=== PATIENT | male | born 1965 | race Caucasian/White ===

== ENCOUNTER → 2017-07-17 17:04 | Outpatient (CLI) | payer OTHER, SELFPAY ==
[2017-07-17 17:47] LABS: Absolute Lymphocyte Count 3.05 X10^3/ul (0.83-4.51); Basophil# 0.02 X10^3/uL; Basophil% 0.3 % (0-1); Eosinophils% 1.3 % (0-5); Hematocrit 46.6 % (40-54); Hemoglobin 15.4 g/dl (13.0-16.5); Lymphocyte # 3.05 X10^3/ul (4.0); Lymphocyte % 39.5 % (19-41); Mean Corpuscular Hgb 30.1 pg (27.0-32.0); Mean Platelet Vol. 9.4 fl (6.2-12.0); Monocyte# 0.56 X10^3/uL; Monocyte% 7.2 % (0-10); Neutrophil # 3.99 X10^3/uL (2.7-7.7); Neutrophil % 51.6 % (47-70); Platelet Count 202 K/mm3 (150-450); RBC Distribution Width CV 13.3 % (11.6-14.6); RBC Distribution Width SD 43.6 fl (35.1-43.9); Red Blood Count 5.12 M/mm3 (4.6-6.2); White Blood Count 7.7 K/mm3 (4.4-11.0)
[2017-07-17 17:55] LABS: POSITIVE COUNT NO; POSITIVE DIFFERENTIAL NO; POSITIVE MORPHOLOGY NO
[2017-07-17 18:27] LABS: ALB/GLOB Ratio 1.1 RATIO (0.9-2.4); AST(SGOT) 19 U/L (15-37); Alanine Aminotransfer ALT/SGPT 43 U/L (16-61); Albumin, Serum 3.9 g/dL (3.2-5.0); Alkaline Phosphatase 50 U/L (45-117); Anion Gap 8 (5-15); BUN 18 mg/dL (7-18); BUN/Creat Ratio 16.4 RATIO (10-20); Calcium,Total 8.7 mg/dL (8.5-10.1); Chloride 109 mmol/L (98-107); EST Glomerular Filtration Rate 75 mL/min (>60); Est Glom Filt Rate - Afr Amer 91 mL/min (>60); Globulin 3.4 g/dL (2.2-4.2); Glucose 95 mg/dL (74-106); Potassium 3.8 mmol/L (3.5-5.1); Protein, Total 7.3 g/dL (6.4-8.2); Sodium Level 142 mmol/L (136-145)
== END ==
PROVIDERS: Family Provider Family Medicine; PCP Family Medicine; Visit Provider Family Medicine
DX: R00.2 Palpitations (principal)
CPT/HCPCS: 36415; 80053; 84443; 85025

== ENCOUNTER → 2017-08-03 07:33 | Outpatient (CLI) | payer OTHER, SELFPAY ==
[2017-08-03 08:57] LABS: AST(SGOT) 22 U/L (15-37); Alanine Aminotransfer ALT/SGPT 44 U/L (16-61); Albumin, Serum 3.9 g/dL (3.2-5.0); Alkaline Phosphatase 48 U/L (45-117); Bilirubin, Direct 0.06 mg/dL (0.00-0.30); Cholesterol 166 mg/dL (200); Globulin 3.4 g/dL (2.2-4.2); High Density Lipoprotein 25 mg/dL; Protein, Total 7.3 g/dL (6.4-8.2); Thyroid Stim Hormone (TSH) 2.88 uIU/mL (0.358-3.74); Triglycerides 310 mg/dL; Very Low Density Lipoprotein 62 mg/dL (5-40)
== END ==
PROVIDERS: Family Provider Family Medicine; PCP Family Medicine; Visit Provider Internal Medicine Cardiovascular Disease
DX: I49.3 Ventricular premature depolarization (principal); I10 Essential (primary) hypertension; E66.9 Obesity, unspecified; R00.2 Palpitations; E78.5 Hyperlipidemia, unspecified
CPT/HCPCS: 36415; 80061; 80076; 84443

== ENCOUNTER → 2017-08-21 13:55 | Outpatient (CLI) | payer OTHER, SELFPAY ==
--- NOTE | 2017-08-21 13:57 | ECHOD_ITS ---
Reason For Study: CHEST PAIN Procedure This was a 2D Doppler, Color Flow transthoracic echocardiogram. Exam performed in department. Left Ventricle Normal size and thickness. The estimated ejection fraction is 65 %. Normal diastology for age. No regional wall motion abnormalities noted. Right Ventricle Normal size and thickness. Normal systolic function. Atria Normal left atrium. Normal right atrium. Normal atrial septum. Mitral Valve The mitral valve is structurally normal. No prolapse or stenosis seen. Tricuspid Valve Normal tricuspid valve. Unable to estimate RV systolic pressure due to inadequate jet, pulmonary artery pressure probably normal. Aortic Valve Normal aortic valve. Trisinus/trileaflet aortic valve. Pulmonic Valve Normal pulmonic valve. Trivial pulmonic valve insufficiency. Great Vessels Normal aortic root. Normal arch. Normal inferior vena cava. Inferior vena cava collapse with sniff. Pericardium/Pleural No pericardial effusion. MMode/2D Measurements & Calculations LVIDd: 4.8 cm IVSd: 0.94 cm Ao root diam: 3.2 cm LVIDs: 3.2 cm LVPWd: 1.0 cm RVDd: 3.3 cm FS: 32.0 % LAV(MOD-bp): 42.5 ml LA A4 area: 15.1 cm2 RA A4 area: 13.7 cm2 LAV(MOD-bp) Indexed: 19.1 ml/m2 LAV(MOD-sp2): 52.1 ml LAV(MOD-sp4): 33.4 ml Doppler Measurements & Calculations MV E max chris: 53.1 cm/sec Lat Peak E' Chris: 8.3 cm/sec Med Peak E' Chris: 7.7 cm/sec MV A max chris: 63.1 cm/sec E/E' lat: 6.4 E/E' med: 6.9 MV E/A: 0.84 Ao V2 max: 131.8 cm/sec LV V1 max: 103.0 cm/sec PA V2 max: 114.4 cm/sec Ao max P.9 mmHg LV V1 max P.2 mmHg PI end-d chris: 105.2 cm/sec Interpretation Summary The estimated ejection fraction is 65 %. Normal diastology for age. Unable to estimate RV systolic pressure due to inadequate jet, pulmonary artery pressure probably normal. There is no comparison study available. Ordering Physician: Nathanael Loomis Referring Physician: CHRISTIANO REED Performed By: Lucy Fuller RDCS, RVT
== END ==
PROVIDERS: Family Provider Family Medicine; PCP Family Medicine; Visit Provider Internal Medicine Cardiovascular Disease
DX: I10 Essential (primary) hypertension (principal); I49.3 Ventricular premature depolarization; R00.2 Palpitations; R06.83 Snoring
CPT/HCPCS: 93306

== ENCOUNTER → 2017-08-30 13:35 | Outpatient (CLI) | payer OTHER, SELFPAY ==
--- NOTE | 2017-08-30 13:37 | STE_ITS ---
Reason For Study: CHEST PAIN Stress Results Protocol: Reji Protocol Maximum Predicted HR: 170 bpm Target HR: 145 bpm% Max imum Predicted HR: 105 % DurationHeart Rate Stage (mm:ss) (bpm) BP BASELINE 97 152/10 8 STAGE 1 3:00 12 5 184/110 STAGE 2 3:00 15 5 184/110 STAGE 3 3:00 17 9 220/112 RECOVERY 111 152/1 08 Stress Duration: 9:00 mm:ss Maximum Stress HR: 179 bpm Baseline Echocardiogram Findings The estimated ejection fraction is 65 %. Stress Echo Wall motion Data Resting WMIntermediate WMStress WM Resting Wall Motion Wall Motion Stress No regional wall motion No regional wall motion abnormalities noted. abnormalities noted. EKG Data The baseline ECG demonstrates normal sinus rhythm with at rate of _ beats per minute. The patient exercised according to the regular Reji protocol for a total duration of 9:00. The maximum heart rate attained was 179 beats per minute. This was 105% of maximum predicted heart rate. The patient exercised into stage 4 of the Reji protocol. During stress, there were no ST or T wave changes noted to suggest ischemia. No clinical angina was noted. Interpretation Summary The estimated ejection fraction is 65 %. Normal, adequate, treadmill echocardiogram. Negative for ischemia by EKG and echocardiographic criteria. No anginal symptoms noted. Rare PVCs noted. Baseline hypertension and hypertensive blood pressure response to exercise. Final LVEF is 75%. Average exercise capacity for age. No complications. Ordering Physician: Nathanael Loomis Referring Physician: Nathanael Loomis Performed By: Lucy Fuller, UMM, RVT
== END ==
PROVIDERS: Family Provider Family Medicine; PCP Family Medicine; Visit Provider Internal Medicine Cardiovascular Disease
DX: I49.3 Ventricular premature depolarization (principal); I10 Essential (primary) hypertension; R00.2 Palpitations; R07.9 Chest pain, unspecified
CPT/HCPCS: 93017; 93350

== ENCOUNTER → 2018-02-08 07:44 | Outpatient (CLI) | payer OTHER, SELFPAY ==
[2018-02-08 09:33] LABS: AST(SGOT) 23 U/L (15-37); Alanine Aminotransfer ALT/SGPT 40 U/L (16-61); Albumin, Serum 3.8 g/dL (3.2-5.0); Alkaline Phosphatase 47 U/L (45-117); Bilirubin, Direct 0.08 mg/dL (0.00-0.30); Cholesterol 186 mg/dL (200); Globulin 3.5 g/dL (2.2-4.2); High Density Lipoprotein 24 mg/dL; Protein, Total 7.3 g/dL (6.4-8.2); Triglycerides 242 mg/dL; Very Low Density Lipoprotein 48 mg/dL (5-40)
== END ==
PROVIDERS: Family Provider Family Medicine; PCP Family Medicine; Referring Provider Internal Medicine Cardiovascular Disease; Visit Provider Internal Medicine Cardiovascular Disease
DX: E78.5 Hyperlipidemia, unspecified (principal)
CPT/HCPCS: 36415; 80061; 80076

== ENCOUNTER → 2018-05-05 16:18 | Outpatient (CLI) | payer OTHER, SELFPAY ==
[2018-02-07 14:26] VITALS: BMI 31.0
--- NOTE | 2018-05-05 16:23 | RAD_ITS ---
STUDY: X-RAY - LUMBAR SPINE REASON FOR EXAM: Male, 52 years old. Low back pain TECHNIQUE: 5 view(s) of the lumbar spine were obtained. COMPARISON: None FINDINGS: Normal lumbar lordosis. There is no substantial scoliosis. There is a normal alignment of the vertebrae. Normal vertebral bodies and endplates. Normal disc space heights. The soft tissue structures are unremarkable. RAD/L/S Spine Min 4 Views IMPRESSION: Normal x-ray examination of the lumbar spine. Electronically Signed: Charlie Bernardo MD at 17:47 EST , Service support ,
== END ==
PROVIDERS: Family Provider Family Medicine; PCP Family Medicine; Referring Provider Family Medicine; Visit Provider Family Medicine
DX: M54.5 Low back pain (principal)
CPT/HCPCS: 72110

== ENCOUNTER 2018-07-14 18:30 | Outpatient (RCR) | payer OTHER, SELFPAY ==
--- NOTE | 2018-06-12 16:18 | HP.PTEVAL ---
Patient's Visit Information RONALD TAYLOR is a 52 year old M referred to Physical Therapy by Don Mccauley MD with a diagnosis of ACUTE RADICULAR LOW BACK PAIN. Date of Evaluation: 06/12/18 Physical Therapist: Aris Gonzalez PT, Cert MDT, OCS - Visit Plan Frequency: 2x /Week Duration: 4 Weeks Plan: ADRIANA EX'S WITH HIPS TO LEFT PROGRESS TO SAGGITAL,STRETCHING FOR RIGHT ANR. PROGRESS TO STABLIZATION EX'S FOR CORE,POSTURAL EX'S AND MODALTIES NEEDED - Subjective Findings: This 52 y/o male presents to physical therapy acute low back pain. Patient 1 month ago shoveling snow slipped notice sonme soreness. Then shoveled moms driveway,then next day pulled up heavy garage door felt sharp pain with radiculoathy right leg posterior leg. Patient seen DR limon,predisone ,gabepetin,tramadol,naproxyn. Patient had x-rays. Patient has had MRI L4-5 HNP. Patient has had lumbar pain since 37 y/o. Patient pain right lumbar ocassioanlly radicular. Coughing/sneezin+. Roberto/bladder good. Denies parathesia/tingling. Patient has had prior chiropractor. Patient lumbar pain affets QOL and function. SOCAIL: . VOCATION: sales - Pain Right Back Pain Intensity (Out of 10): 2 Pain Intensity Range: 10 - Objective POSTURE: mild foward posture ,slight lateral shift left. GAIT: normal michelle. SYMMTRIES: ALIGN. NEURO: intact. FLEXABLITY: hams mod tight from ANR on right. MMT: quads 4-/5,hams 4/5,hip 4/5,ankle 4/5. LUMBAR ROM: flexion min/mod loss.extension min loss,side glides min loss - Special Tests L/S Slump test left side: Negative L/S Slump test right side: Positive L/S Left Straight Leg Raise: Negative L/S Right Straight Leg Raise: Positive Lumbar Standing: Flexion - Mechanical Response: No effect Lumbar Standing: Flexion - Symptoms During Testing: Increases Lumbar Standing: Flexion - Symptoms After Testing: Worse Lumbar Standing: Extension - Mechanical Response: No effect Lumbar Standing: Extension - Symptoms During Testing: Increases Lumbar Standing: Extension - Symptoms After Testing: No worse Lumbar Standing: Right Side Glides - Mechanical Response: No effect Lumbar Standing: Right Side [place] - Symptoms During Testing: Decreases Lumbar Standing: Right Side [place] - Symptoms After Testing: Better Lumbar Standing: Left Side [place] - Mechanical Response: No effect Lumbar Standing: Left Side [place] - Symptoms During Testing: No effect Lumbar Standing: Left Side [place] - Symptoms After Testing: No effect Lumbar Lying: Flexion - Mechanical Response: No effect Lumbar Lying: Flexion - Symptoms During Testing: Increases Lumbar Lying: Flexion - Symptoms After Testing: No worse Lumbar Lying: Extension - Mechanical Response: No effect Lumbar Lying: Extension - Symptoms During Testing: Increases Lumbar Lying: Extension - Symptoms After Testing: No worse Comments:: shift left hips reduces symptoms - Goals Goal 1:: Independant with HEP Goal Time Frame: 4-6 Weeks Goal 2:: Independant with posture/body mecahnics. Goal Time Frame: 4-6 Weeks Goal 3:: Patient d/c to prophalxis to dimish recurrance Goal Time Frame: 4-6 Weeks Goal 4:: Patient to improve lumbar ROM for function of recovery Goal Time Frame: 4-6 Weeks Goal 5:: Patient improve TRISTAN back score by 5 points Goal Time Frame: 4-6 Weeks - Rehabilitation Potential Physical Therapy Diagnosis: This patient has derrangement below knee with h/o HNP .Patient intially had left shift deformity ,pain right leg ,decrease ROM + ANR right leg along with weakness impairs gait ansd function. Rehabilitation Potential: Good - Anticipated Interventions Patient/Client Instruction: Educate patient on: Condition, Plan of Care For the Purpose of:: To decrease pain, To increase ROM, To improve muscle performance and motor function, To increase tolerance to activity/condition/position, To improve ability of physical actions for home/community/work/leisure, To improve gait and locomotor functions, To improve health of tissue, To decrease soft tissue restriction, To increase flexibility/ROM, To reduce risk of recurrence, To improve ability to perform tasks related to life management Therapeutic Exercise to Include: Strength training, Body mechanics, Postural training, Flexibilty training, Dynamic Lumbar Stabilization, Adriana Exercises For the Purpose of:: To decrease pain, To increase ROM, To improve muscle performance and motor function, To improve ability to perform ADL's, To improve performance and independence with ADL's, To improve ability of physical actions for home/community/work/leisure, To improve health of tissue, To decrease soft tissue restriction, To increase flexibility/ROM, To improve ability to perform tasks related to life management TENS: Yes IF ES: Yes Cryotherapy (ice pack, ice massage): Yes Ultrasound (thermal/non thermal): Yes For the Purpose of:: To decrease pain, To increase ROM, To improve nutrient delivery to tissue, To increase oxygenation perfusion, To improve health of tissue, To decrease soft tissue restriction Thank you for the opportunity to evaluate your patient. For Medicare and Medicare HMO plans, please review the plan of care and approve it. It will need to be FAXED BACK to us at [phone] for Medicare purposes. For Medicare only, by signing this I certify the plan of care. Please let me know if there are questions or concerns regarding this plan of care. Physician Signature: Date:
--- NOTE | 2018-07-14 18:58 | HP.PTDCSUM ---
HP - PT D/C Summary It has been my pleasure to treat RONALD TAYLOR under orders from Don Mccauley MD, for the diagnosis of ACUTE RADICULAR LOW BACK PAIN for a total of 9 visit(s). Discharge Date: 07/14/18 Please see the following information for a summary of their discharge status. - Subjective Subjective: Doing well.. no pain lumbar - Pain Right Back Pain Intensity (Out of 10): 0 midline Pain Intensity (Out of 10): 0 - Overall Improvement % Improvement: 80 - Objective Objective/Function: POSTURE: WFL. NEURO: INTACT. GAIT: normal michelle. MMT: quads/hams /hip 5/5. LUMBAR ROM: flexion/extension WNL ,SIDE SLIDE WFL. -SLR - Goals Goal 1:: Independant with HEP Goal Progress: Goal Met Goal 2:: Independant with posture/body mecahnics. Goal Progress: Goal Met Goal 3:: Patient d/c to prophalxis to dimish recurrance Goal Progress: Goal Met Goal 4:: Patient to improve lumbar ROM for function of recovery Goal Progress: Goal Met Goal 5:: Patient improve TRISTAN back score by 5 points Goal Progress: Goal Met - Plan Plan: D/C TO HEP - D/C Information Discharge Comments: HEP If there are questions or concerns regarding this patient's physical therapy, please feel free to call me at [phone]. Thank you for the referral of this patient. Sincerely, Aris Gonzalez, PT, Cert MDT, OCS
== END 2018-07-14 19:00 | disposition home or self-care (01) ==
LOC: PT 18:30
PROVIDERS: Family Provider Family Medicine; PCP Family Medicine; Referring Provider Family Medicine; Visit Provider Family Medicine
DX: M54.16 Radiculopathy, lumbar region (principal)
CPT/HCPCS: 97014; 97110; 97161; 97530; G0283

== ENCOUNTER → 2018-08-23 07:19 | Outpatient (CLI) | payer OTHER, SELFPAY ==
[2018-08-21 14:23] VITALS: BMI 31.0
[2018-08-23 08:32] LABS: AST(SGOT) 26 U/L (15-37); Alanine Aminotransfer ALT/SGPT 38 U/L (16-61); Albumin, Serum 3.9 g/dL (3.2-5.0); Alkaline Phosphatase 44 U/L (45-117); Bilirubin, Direct 0.09 mg/dL (0.00-0.30); Cholesterol 205 mg/dL (200); Globulin 3.4 g/dL (2.2-4.2); High Density Lipoprotein 28 mg/dL; Protein, Total 7.3 g/dL (6.4-8.2); Triglycerides 257 mg/dL; Very Low Density Lipoprotein 51 mg/dL (5-40)
== END ==
PROVIDERS: Family Provider Family Medicine; PCP Family Medicine; Referring Provider Internal Medicine Cardiovascular Disease; Visit Provider Internal Medicine Cardiovascular Disease
DX: E78.5 Hyperlipidemia, unspecified (principal)
CPT/HCPCS: 36415; 80061; 80076

== ENCOUNTER → 2019-03-13 06:30 | Outpatient (CLI) | payer OTHER, SELFPAY ==
[2019-03-05 14:56] VITALS: BMI 32.4
[2019-03-13 08:13] LABS: AST(SGOT) 24 U/L (15-37); Alanine Aminotransfer ALT/SGPT 49 U/L (16-61); Albumin, Serum 3.9 g/dL (3.2-5.0); Alkaline Phosphatase 47 U/L (45-117); Bilirubin, Direct 0.08 mg/dL (0.00-0.30); Cholesterol 229 mg/dL (200); Globulin 3.7 g/dL (2.2-4.2); High Density Lipoprotein 28 mg/dL; Protein, Total 7.6 g/dL (6.4-8.2); Triglycerides 209 mg/dL; Very Low Density Lipoprotein 42 mg/dL (5-40)
== END ==
PROVIDERS: Family Provider Family Medicine; PCP Family Medicine; Referring Provider Internal Medicine Cardiovascular Disease; Visit Provider Internal Medicine Cardiovascular Disease
DX: E78.5 Hyperlipidemia, unspecified (principal)
CPT/HCPCS: 36415; 80061; 80076

== ENCOUNTER → 2019-08-07 07:19 | Outpatient (CLI) | payer OTHER, SELFPAY ==
[2019-08-06 09:59] VITALS: BMI 32.5
[2019-08-07 08:42] LABS: AST(SGOT) 27 U/L (15-37); Alanine Aminotransfer ALT/SGPT 61 U/L (16-61); Albumin, Serum 3.9 g/dL (3.2-5.0); Alkaline Phosphatase 47 U/L (45-117); Bilirubin, Direct 0.13 mg/dL (0.00-0.30); Cholesterol 190 mg/dL (200); Globulin 3.7 g/dL (2.2-4.2); High Density Lipoprotein 30 mg/dL; Protein, Total 7.6 g/dL (6.4-8.2); Triglycerides 180 mg/dL; Very Low Density Lipoprotein 36 mg/dL (5-40)
== END ==
PROVIDERS: PCP Family Medicine; Referring Provider Internal Medicine Cardiovascular Disease; Visit Provider Internal Medicine Cardiovascular Disease
DX: E78.5 Hyperlipidemia, unspecified (principal)
CPT/HCPCS: 36415; 80061; 80076

== ENCOUNTER → 2020-09-17 07:25 | Outpatient (CLI) | payer OTHER, SELFPAY ==
[2020-03-30 10:27] VITALS: BMI 33.2
[2020-09-17 08:24] LABS: AST(SGOT) 22 U/L (15-37); Alanine Aminotransfer ALT/SGPT 47 U/L (16-61); Alkaline Phosphatase 51 U/L (45-117); Bilirubin, Direct 0.12 mg/dL (0.00-0.30); Cholesterol 196 mg/dL (200); Globulin 3.7 g/dL (2.2-4.2); High Density Lipoprotein 34 mg/dL; Protein, Total 7.7 g/dL (6.4-8.2); Triglycerides 201 mg/dL; Very Low Density Lipoprotein 40 mg/dL (5-40)
== END ==
PROVIDERS: PCP Family Medicine; Referring Provider Nurse Practitioner Family; Visit Provider Nurse Practitioner Family
DX: E78.00 Pure hypercholesterolemia, unspecified (principal); E78.5 Hyperlipidemia, unspecified
CPT/HCPCS: 36415; 80061; 80076

== ENCOUNTER → 2021-08-29 | Outpatient (CLI) | payer OTHER, SELFPAY ==
[2021-08-29 17:36] LABS: AST(SGOT) 21 U/L (15-37); Alanine Aminotransfer ALT/SGPT 42 U/L (16-61); Alkaline Phosphatase 51 U/L (45-117); Bilirubin, Direct 0.09 mg/dL (0.00-0.30); Cholesterol 234 mg/dL (200); Globulin 3.5 g/dL (2.2-4.2); High Density Lipoprotein 30 mg/dL; Protein, Total 7.5 g/dL (6.4-8.2); Triglycerides 283 mg/dL; Very Low Density Lipoprotein 57 mg/dL (5-40)
== END | disposition home or self-care (01) ==
LOC: LAB 16:45
PROVIDERS: PCP Family Medicine; Referring Provider Physician Assistant Medical; Visit Provider Physician Assistant Medical
DX: E78.00 Pure hypercholesterolemia, unspecified (principal)
CPT/HCPCS: 36415; 80061; 80076

== ENCOUNTER → 2022-03-10 | Outpatient (CLI) | payer OTHER, SELFPAY ==
[2022-03-10 08:31] LABS: AST(SGOT) 23 U/L (15-37); Alanine Aminotransfer ALT/SGPT 54 U/L (16-61); Albumin, Serum 3.7 g/dL (3.2-5.0); Alkaline Phosphatase 57 U/L (45-117); Bilirubin, Direct 0.08 mg/dL (0.00-0.30); Cholesterol 188 mg/dL (200); Globulin 3.6 g/dL (2.2-4.2); High Density Lipoprotein 25 mg/dL; Protein, Total 7.3 g/dL (6.4-8.2); Triglycerides 286 mg/dL; Very Low Density Lipoprotein 57 mg/dL (5-40)
== END | disposition home or self-care (01) ==
PROVIDERS: PCP Family Medicine; Referring Provider Physician Assistant Medical; Visit Provider Physician Assistant Medical
DX: I10 Essential (primary) hypertension (principal); E78.2 Mixed hyperlipidemia
CPT/HCPCS: 36415; 80061; 80076

== ENCOUNTER → 2022-09-08 | Outpatient (CLI) | payer OTHER, SELFPAY ==
[2022-09-08 08:59] LABS: Anion Gap 4 (5-15); BUN 15 mg/dL (7-18); BUN/Creat Ratio 13.5 RATIO (10-20); Chloride 107 mmol/L (98-107); Cholesterol 202 mg/dL (200); Creatinine, Serum 1.11 mg/dL (0.70-1.30); EST Glomerular Filtration Rate 73 mL/min (>60); Est Glom Filt Rate - Afr Amer 88 mL/min (>60); Glucose 114 mg/dL (74-106); High Density Lipoprotein 25 mg/dL; PSA,Total - Annual Screen 1.04 ng/mL (0.00-4.00); Potassium 4.2 mmol/L (3.5-5.1); Sodium Level 141 mmol/L (136-145); Thyroid Stim Hormone (TSH) 2.55 uIU/mL (0.358-3.74); Triglycerides 343 mg/dL; Very Low Density Lipoprotein 69 mg/dL (5-40)
[2022-09-10 09:04] LABS: Vitamin D,25 Hydroxy 36.4 ng/mL
== END | disposition home or self-care (01) ==
LOC: LAB 08:00
PROVIDERS: PCP Family Medicine; Referring Provider Family Medicine; Visit Provider Family Medicine
DX: Z00.00 Encounter for general adult medical examination without abnormal findings (principal)
CPT/HCPCS: 36415; 80048; 80061; 82306; 84153; 84403; 84443; G0103

== ENCOUNTER → 2023-09-28 | Outpatient (CLI) | payer OTHER, SELFPAY ==
[2023-09-28 09:21] LABS: Hemoglobin A1c 5.7 % (3.8-5.6)
[2023-09-28 10:30] LABS: Anion Gap 7 (5-15); BUN 15 mg/dL (7-18); Calcium,Total 9.1 mg/dL (8.5-10.1); Chloride 107 mmol/L (98-107); Cholesterol 233 mg/dL (200); Creatinine, Serum 1.07 mg/dL (0.70-1.30); EST Glomerular Filtration Rate 76 mL/min (>60); Est Glom Filt Rate - Afr Amer 92 mL/min (>60); Glucose 110 mg/dL (74-106); High Density Lipoprotein 28 mg/dL; Sodium Level 140 mmol/L (136-145); Triglycerides 230 mg/dL; Very Low Density Lipoprotein 46 mg/dL (5-40)
== END | disposition home or self-care (01) ==
LOC: LAB 08:28
PROVIDERS: PCP Family Medicine; Referring Provider Family Medicine; Visit Provider Family Medicine
DX: I10 Essential (primary) hypertension (principal); R73.09 Other abnormal glucose
CPT/HCPCS: 36415; 80048; 80061; 83036

== ENCOUNTER → 2024-05-16 | Outpatient (CLI) | payer OTHER, SELFPAY ==
[2024-05-16 09:25] LABS: ALB/GLOB Ratio 1.1 RATIO (0.9-2.4); AST(SGOT) 20 U/L (15-37); Alanine Aminotransfer ALT/SGPT 33 U/L (16-61); Albumin, Serum 3.6 g/dL (3.2-5.0); Alkaline Phosphatase 49 U/L (45-117); Anion Gap 6 (5-15); BUN 16 mg/dL (7-18); BUN/Creat Ratio 14.7 RATIO (10-20); Calcium,Total 9.2 mg/dL (8.5-10.1); Chloride 107 mmol/L (98-107); Cholesterol 188 mg/dL (200); Creatinine, Serum 1.09 mg/dL (0.70-1.30); EST Glomerular Filtration Rate 74 mL/min (>60); Est Glom Filt Rate - Afr Amer 90 mL/min (>60); Globulin 3.4 g/dL (2.2-4.2); Glucose 108 mg/dL (74-106); High Density Lipoprotein 33 mg/dL; Potassium 3.9 mmol/L (3.5-5.1); Sodium Level 139 mmol/L (136-145); Triglycerides 179 mg/dL; Very Low Density Lipoprotein 36 mg/dL (5-40)
== END | disposition home or self-care (01) ==
LOC: LAB 08:29
PROVIDERS: PCP Family Medicine; Referring Provider Family Medicine; Visit Provider Family Medicine
DX: I10 Essential (primary) hypertension (principal)
CPT/HCPCS: 36415; 80053; 80061

== ENCOUNTER → 2024-09-30 | Outpatient (CLI) | payer OTHER, SELFPAY ==
[2024-09-30 11:23] LABS: Cholesterol 214 mg/dL (<=200); Low Density Lipoprotein Calc. 129 mg/dL; Triglycerides 259 mg/dL; Very Low Density Lipoprotein 52 mg/dL (5-40); cholesterol:hdl ratio screen 6.50
[2024-09-30 11:24] LABS: AST(SGOT) 25 U/L (<=37); Alanine Aminotransfer ALT/SGPT 36 U/L (<=46); Albumin, Serum 4.5 g/dL (3.5-5.0); Alkaline Phosphatase 53 U/L (40-129); Anion Gap 13 (5-15); BUN 16 mg/dL (4-19); BUN/Creat Ratio 14.1 RATIO (10-20); Calcium,Total 9.8 mg/dL (7.6-11.0); Carbon Dioxide 26.2 mmol/L (21.0-32.0); Chloride 100 mmol/L (98-108); Globulin 3.1 g/dL (2.2-4.2); Glucose 103 mg/dL (70-99); Potassium 4.2 mmol/L (3.3-5.1)
== END | disposition home or self-care (01) ==
LOC: LAB 08:54
PROVIDERS: PCP Family Medicine; Referring Provider Family Medicine; Visit Provider Family Medicine
DX: I10 Essential (primary) hypertension (principal)
CPT/HCPCS: 36415; 80053; 80061

== ENCOUNTER → 2025-02-24 | Outpatient (CLI) | payer OTHER, SELFPAY ==
--- OUTSIDE RECORDS SUMMARY | 2025-02-24 06:52 | XMS RPT_ITS | CCD ---
Author Organization [facility] Care Team Providers Care Pipe And Test Supervisor Name Role Phone Dr. Don Mccauley Primary Care Provider [phone] Dr. Don Mccauley Referring Provider [phone] Luann REESE, [place] Annette Burgess Attending Provider Parisa HERNANDEZ, Dr. Ochoa Primary Care Provider Parisa HERNANDEZ, Dr. Ochoa Attending Provider Parisa HERNANDEZ, Dr. Ochoa Referring Provider Don Mccauley Primary Care Unavailable Parisa, Don Referring Unavailable Parisa, Don Attending Unavailable Don Mccauley Referring Unavailable Parisa, Don Attending Unavailable Don Mccauley Primary Care Unavailable Allergies Allergy Classification Reported Allergen(s) Allergy Type Date of Onset Reaction(s) Facility (3 sources) atorvastatin Drug Allergy 08-29-2021 muscle aches [facility] (3 sources) Morphine Drug Allergy 08-29-2021 hypertension [facility] Comment on above: sedated for hours/ h tn (1 source) atorvastatin Drug Allergy 05-29-2022 [facility] (1 source) Morphine Drug Allergy 05-29-2022 [facility] Medications Current Medications Medication Drug Class(es) Dates Sig (Normalized) Sig (Original) carvedilol 12.5 mg oral tablet (3 sources) alpha-Adrenergic Ab, beta-Adrenergic Ab Start: 07-30-19 18 take 1 tablet by mouth twice daily Carvedilol 12.5 mg tablet Active 12.5 mg PO TWICE A DAY 180 90 0 July 29, 2017 12:00am DULoxetine 60 mg delayed release oral capsule (3 sources) Serotonin and Norepinephrine Reuptake Inhibitor Start: 08-22-19 19 take 1 capsule by mouth once daily Duloxetine 60 mg capsule,delayed release(DR/EC) Active 60 mg PO DAILY August 21, 2018 12:00am hydroCHLOROthiazide 25 mg oral tablet (10 sources) Thiazide Diuretic Start: 05-29-19 End: 06-17-19 take 1 tablet by mouth once daily Hydrochlorothiazide 25 mg tablet Active 25 mg PO DAILY 90 June 16, 2024 12:39pm Start: 03-02-2019 End: 09-22-2020 take 1 tablet by mouth once daily Hydrochlorothiazide 12.5 mg tablet Discontinued 12.5 mg PO DAILY 90 February 22, 2020 4:27pm September 22, 2020 2:47pm losartan potassium 100 mg oral tablet (14 sources) Angiotensin 2 Receptor Ab Start: 09-22-2020 End: 07-27-2024 take 1 tablet by mouth once daily Losartan 100 mg tablet Active 100 mg PO DAILY 30 0 July 27, 2024 10:24am Start: 03-02-2019 End: 09-22-2020 take 1 tablet by mouth once daily Losartan 50 mg tablet Discontinued 50 mg PO DAILY 90 February 22, 2020 4:27pm September 22, 2020 2:52pm Multivitamin (Men's Multi-Vitamin) tablet (3 sources) Start: 02-07-2018 take 1 tablet by mouth once daily Multivitamin (Men's Multi-Vitamin) tablet Active 1 TABLET PO DAILY February 07, 2018 3:27pm Start: 02-07-2018 End: 03-05-2022 Multivitamin (Men's Multi-Vi tamin) tablet Discontinued 1 {tbl} PO DAILY February 07, 2018 1:00am March 05, 2022 4:20pm Start: 02-07-2018 End: 03-05-2022 take 1 tablet by mouth once daily Multivitamin (Men's Multi-Vitamin) tablet Discontinued 1 TABLET PO DAILY February 07, 2018 12:00am March 05, 2022 3:20pm Completed/Discontinued Medications Medication Drug Class(es) Dates Sig (Normalized) Sig (Original) aspirin 81 mg delayed release oral tablet (3 sources) Platelet Aggregation Inhibitor, Nonsteroidal Anti-inflammatory Drug Start: 02-07-2018 End: 09-22-2020 take 1 tablet by mouth once daily Aspirin (Adult Aspirin Regimen) 81 mg tablet,delayed release (DR/EC) Discontinued 81 mg PO DAILY February 07, 2018 1:00am Chelsie 24th, 2021 2:49pm atorvastatin 20 mg oral tablet (3 sources) HMG-CoA Reductase Inhibitor Start: 09-22-2020 End: 08-29-2021 take 1 tablet by mouth once daily Atorvastatin (Lipitor) 20 mg tablet Discontinued 20 mg PO DAILY 90 September 22, 2020 12:00am August 29, 2021 4:02pm ezetimibe 10 mg oral tablet (6 sources) Dietary Cholesterol Absorption Inhibitor Start: 03-13-2019 End: 09-22-2020 take 1 tablet by mouth once daily Ezetimibe (Zetia) 10 mg tablet Discontinued 10 mg PO DAILY 90 March 07, 2020 3:50pm September 22, 2020 2:51pm gemfibrozil 600 mg oral tablet (12 sources) Peroxisome Proliferator Receptor alpha Agonist Start: 09-26-2018 End: 09-22-2020 take 1 tablet by mouth twice daily Gemfibrozil 600 mg tablet Discontinued 600 mg PO TWICE A DAY 60 October 05, 2019 4:56pm September 22, 2020 2:51pm Start: 02-07-2018 End: 09-26-2018 take 1 tablet by mouth once daily Gemfibrozil 600 mg tablet Discontinued 600 mg PO DAILY 60 February 07, 2018 3:44pm September 26, 2018 10:44am Start: 10-25-2017 End: 02-07-2018 take 1 tablet by mouth twice daily Gemfibrozil 600 mg tablet Discontinued 600 mg PO TWICE A DAY 60 October 25, 2017 12:00am February 07, 2018 3:45pm hydroCHLOROthiazide 12.5 mg / losartan potassium 50 mg oral tablet (12 sources) Thiazide Diuretic, Angiotensin 2 Receptor Ab Start: 10-24-2017 End: 03-02-2019 Losartan-Hydrochlorothiazide (Hyzaar) 50-12.5 mg tablet Discontinued 1 {tbl} PO daily 90 3 September 01, 2018 4:39pm March 02, 2019 4:45pm Start: 09-10-2017 End: 10-24-2017 Losartan-Hydrochlorothiazide (Hyzaar) 50-12.5 mg tablet Discontinued 1 {tbl} PO .COMPLEX September 10, 2017 4:48pm October 24, 2017 10:30am 1 tab PO pt to call back with actual dose on 09/11/17 Start: 09-10-2017 End: 09-10-2017 Losartan-Hydrochlorothiazide (Hyzaar) 50-12.5 mg tablet Discontinued 1 {tbl} PO daily September 10, 2017 12:00am September 10, 2017 4:48pm naproxen 500 mg oral tablet (3 sources) Nonsteroidal Anti-inflammatory Drug Start: 09-22-2020 End: 08-29-2021 take 1 tablet by mouth twice daily as needed Naproxen 500 mg tablet Discontinued 500 mg PO TWICE A DAY as needed September 22, 2020 12:00am August 29, 2021 4:03pm predniSONE 20 mg oral tablet (3 sources) Start: 09-22-2020 End: 05-29-2022 take 1 tablet by mouth once daily as needed Prednisone 20 mg tablet Discontinued 20 mg PO DAILY as needed September 22, 2020 12:00am May 29, 2022 3:49pm traMADol hydrochloride 50 mg oral tablet (3 sources) Opioid Agonist Start: 09-22-2020 End: 05-29-2022 take 1 tablet by mouth once daily as needed Tramadol 50 mg tablet Discontinued 50 mg PO DAILY as needed September 22, 2020 12:00am May 29, 2022 3:50pm Problems Problem Classification Problem Date Documented Date Episodic/Chronic Cardiac dysrhythmias (3 sources) Intermittent palpitations; Translations: [Palpitations] 02-07-2018 Episodic Disorders of lipid metabolism (5 sources) Hyperlipidemia; Translations: [Hyperlipidemia, unspecified] Chronic Comment on above: Triglycerides 310, H DL 25, LDL62 per lipid panel done08/03/2017. Blood glucose 07/17/17 is 95. Essential hypertension (6 sources) Essential hypertension; Translations: [Essential (primary) hypertension] Onset: 10-05-2024 Chronic Other lower respiratory disease (3 sources) Snoring; Translations: [Snoring] 09-22-2020 Episodic Other nutritional; endocrine; and metabolic disorders (3 sources) Obesity; Translations: [Obesity, unspecified] 09-22-2020 Chronic Results Test Name Value Interpretation Reference Range Facility Anion gap in Serum or Plasma Ordered By: Don Mccauley on 09-30-2024 Anion gap [Moles/Vol] 13 mmol/L 5-15 [facility] BUN/creatinine ratioOrdered By: Don Mccauley on 09-30-2024 Urea nitrogen/Creatinine [Mass ratio] 14.1 mg/mg 10-20 [facility] Bilirubin, totalOrdered By: Don Mccauley on 09-30-2024 Bilirubin [Mass/Vol] 0.63 mg/dL 0.00-1.30 [facility] Calculated very low density lipoprotein (VLDL) cholesterol measurementOrdered By: Don Mccauley on 09-30-2024 Calculated very low density lipoprotein (VLDL) cholesterol measurement 52 mg/dL High 5-40 [facility] Carbon dioxide, total [Moles /volume] in Central venous bloodOrdered By: Don Mccauley on 09-30-2024 CO2 [Moles/Vol] 26.2 mmol/L 21.0-32.0 [facility] Chloride assayOrdered By: Clyde Mccauley on 09-30-2024 Chloride [Moles/Vol] 100 mmol/L 98-108 [facility] Comprehensive Metabolic Prof ilon 09-30-2024 Albumin [Mass/Vol] 4.5 g/dL Normal 3.5-5.0 [facility] Comment on above: Performed By: #### L [id number], [id number] #### [facility] [address] [place], [address] Albumin/Globulin [Mass ratio] 1.4 {ratio} Normal 0.9-2.4 [facility] Comment on above: Performed By: #### L [id number], [id number] #### [facility] [address] [place], [address] ALK PHOS 53 U/L Normal 40-129 [facility] Comment on above: Performed By: #### L [id number], [id number] #### [facility] [address] [place], [address] ALT [Catalytic activity/Vol] 36 U/L Normal <=46 [facility] Comment on above: Performed By: #### L [id number], [id number] #### [facility] [address] [place], [address] AST [Catalytic activity/Vol] 25 U/L Normal <=37 [facility] Comment on above: Performed By: #### L [id number], [id number] #### [facility] [address] [place], [address] Bilirubin [Mass/Vol] 0.63 mg/dL Normal 0.00-1.30 [facility] Comment on above: Performed By: #### L [id number], [id number] #### [facility] [address] [place], [address] BUN/CRE 14.1 RATIO Normal 10-20 [facility] Comment on above: Performed By: #### L [id number], [id number] #### [facility] [address] [place], [address] Calcium [Mass/Vol] 9.8 mg/dL Normal 7.6-11.0 [facility] Comment on above: Performed By: #### L [id number], [id number] #### [facility] [address] [place], [address] Chloride [Moles/Vol] 100 mmol/L Normal 98-108 [facility] Comment on above: Performed By: #### L [id number], [id number] #### [facility] [address] [place], [address] CO2 [Moles/Vol] 26.2 mmol/L Normal 21.0-32.0 [facility] Comment on above: Performed By: #### L [id number], [id number] #### [facility] [address] [place], [address] Creatinine [Mass/Vol] 1.16 mg/dL Normal 0.70-1.20 [facility] Comment on above: Performed By: #### L [id number], [id number] #### [facility] [address] [place], [address] GAP 13 Normal 5-15 [facility] Comment on above: Performed By: #### L [id number], [id number] #### [facility] [address] [place], [address] GFR/1.73 sq M.predicted among non-blacks MDRD (S/P/Bld) [Vol rate/Area] 73 mL/min/{1.73_m2} Normal >60 [facility] Comment on above: Result Comment: mL/m in/1.73m2 CKD-EPI Creatinine Equation (2020) Performed By: #### L [id number], [id number] #### [facility] [address] [place], [address] Globulin (S) [Mass/Vol] 3.1 g/dL Normal 2.2-4.2 [facility] Comment on above: Performed By: #### L [id number], [id number] #### [facility] [address] [place], [address] Glucose [Mass/Vol] 103 mg/dL High 70-99 [facility] Comment on above: Performed By: #### L [id number], [id number] #### [facility] [address] [place], [address] Potassium [Moles/Vol] 4.2 mmol/L Normal 3.3-5.1 [facility] Comment on above: Result Comment: Hemo lysis present, Results??could be affected. ?? Performed By: #### L [id number], [id number] #### [facility] [address] [place], [address] Sodium [Moles/Vol] 140 mmol/L Normal 133-145 [facility] Comment on above: Performed By: #### L [id number], [id number] #### [facility] [address] [place], [address] T PROT 7.5 g/dL Normal 5.9-8.4 [facility] Comment on above: Performed By: #### L [id number], [id number] #### [facility] [address] [place], [address] Urea nitrogen [Mass/Vol] 16 mg/dL Normal 4-19 [facility] Comment on above: Performed By: #### L [id number], [id number] #### [facility] [address] [place], [address] Glomerular filtration rate ( GFR) estimation/1.73 sq m using serum, plasma, or whole bOrdered By: Don Mccauley on 09-30-2024 GFR/1.73 sq M.predicted among non-blacks MDRD (S/P/Bld) [Vol rate/Area] 73 mL/min/{1.73_m2} >60 [facility] Comment on above: mL/min/1.73m2 CKD-EP I Creatinine Equation (2020) LDL calc ser/plasOrdered By: Don Mccauley on 09-30-2024 Cholesterol in LDL [Mass/Vol] 129 mg/dL [facility] Comment on above: Ablyjvughz=495-350 m g/dL & Higher Trqc=256 mg/dL or greater Laboratory - Chemistry and C hemistry - challengeOrdered By: Don Mccauley on 09-30-2024 AST [Catalytic activity/Vol] 25 U/L <38 [facility] Lipid Profileon 09-30-2024 CHOL:HDL 6.50 Normal [facility] Comment on above: Performed By: #### L [id number], [id number] #### [facility] [address] [place], [address] Cholesterol [Mass/Vol] 214 mg/dL High <=200 [facility] Comment on above: Result Comment: Chol esterol level, Desirable <200 mg/dL Borderline high cholesterol 200-239 mg/dL High cholesterol >=240 mg/dL Recommendations of the NCEP Adult Treatment Panel for the following risk-cutoff thresholds for the [place] population. Performed By: #### L [id number], [id number] #### [facility] [address], [address] Cholesterol in HDL [Mass/Vol] 33 mg/dL Low [facility] Comment on above: Result Comment: Alanis onal Cholesterol Education Program (NCEP) guidelines: <40 mg/dL: Low HDL-cholesterol (major risk factor for CHD) >= 60 mg/dL: High HDL-cholesterol (negative risk factor for CHD) HDL-cholesterol is affected by a number of factors, e.g. smoking, exercise, hormones, sex and age. Performed By: #### L [id number], [id number] #### [facility] [address] [place], [address] Cholesterol in LDL [Mass/Vol] 129 mg/dL Normal [facility] Comment on above: Result Comment: Bord ubqugp=087-569 mg/dL Higher Iyxt=459 mg/dL or greater Performed By: #### L [id number], [id number] #### [facility] [address] [place], [address] Cholesterol in VLDL [Mass/Vol] 52 mg/dL High 5-40 [facility] Comment on above: Performed By: #### L 500.4100, [id number] #### [facility] [address] [place], [address] Triglyceride [Mass/Vol] 259 mg/dL High [facility] Comment on above: Result Comment: The drugs N-Acetylcysteine and Metamizole may falsely depress this assay. Normal range: <150 mg/dL Borderline High: 150-199 mg/dL High: 200-499 mg/dL Very High: >500 mg/dL Performed By: #### L 500.4100, [id number] #### [facility] [address] [place], [address] Potassium measurement (mass/ volume)Ordered By: Don Mccauley on 09-30-2024 Potassium (Unsp spec) [Mass/Vol] 4.2 mmol/L 3.3-5.1 [facility] Comment on above: Hemolysis present, R esults could be affected. Screening total cholesterol/ high density lipoprotein (HDL) cholesterol ratioOrdered By: Don Mccauley on 09-30-2024 Cholesterol.total/Choles terol in HDL [Mass ratio] 6.50 {ratio} [facility] Serum creatinine measurement (mass/volume)Ordered By: Don Mccauley on 09-30-2024 Creatinine [Mass/Vol] 1.16 mg/dL 0.70-1.20 [facility] Serum globulin measurementOr dered By: Don Mccauley on 09-30-2024 Globulin (S) [Mass/Vol] 3.1 g/dL 2.2-4.[address] [facility] Serum glucose measurement (m ass/volume)Ordered By: Don Mccauley on 09-30-2024 Glucose [Mass/Vol] 103 mg/dL High 70-99 [facility] Serum or plasma alanine martin otransferase (ALT) measurementOrdered By: Don Mccauley on 09-30-2024 ALT [Catalytic activity/Vol] 36 U/L <47 [facility] Serum or plasma albumin sergei urement (mass/volume)Ordered By: Don Mccauley on 09-30-2024 Albumin [Mass/Vol] 4.5 g/dL 3.5-5.0 [facility] Serum or plasma albumin/glob ulin mass ratioOrdered By: Don Mccauley on 09-30-2024 Albumin/Globulin [Mass ratio] 1.4 {ratio} 0.9-2.4 [facility] Serum or plasma alkaline mike sphatase measurementOrdered By: Don Mccauley on 09-30-2024 ALP [Catalytic activity/Vol] 53 U/L 40-129 [facility] Serum or plasma calcium sergei urement (mass/volume)Ordered By: Don Mccauley on 09-30-2024 Calcium [Mass/Vol] 9.8 mg/dL 7.6-11.0 [facility] Serum or plasma cholesterol in HDL measurement (mass/volume)Ordered By: Don Mccauley on 09-30-2024 Cholesterol in HDL [Mass/Vol] 33 mg/dL Low >40 [facility] Comment on above: National Cholesterol Education Program (NCEP) guidelines:<40 mg/dL: Low HDL-cholesterol (major risk factor for CHD)>= 60 mg/dL: High HDL-cholesterol (negative risk factor for CHD)HDL-cholesterol is affected by a number of factors, e.g. smoking, exercise, hormones, sex and age. Serum or plasma cholesterol measurement (mass/volume)Ordered By: Don Mccauley on 09-30-2024 Cholesterol [Mass/Vol] 214 mg/dL High <201 [facility] Comment on above: Cholesterol level, D esirable <200 mg/dLBorderline high cholesterol 200-239 mg/dLHigh cholesterol >=240 mg/dLRecommendations of the NCEP Adult Treatment Panel for the following risk-cutoff thresholds for the [place] population. Serum or plasma urea nitroge n measurement (mass/volume)Ordered By: Don Mccauley on 09-30-2024 Urea nitrogen [Mass/Vol] 16 mg/dL 4-19 [facility] Sodium levelOrdered By: Don Mccauley on 09-30-2024 Sodium [Moles/Vol] 140 mmol/L 133-145 [facility] Total proteinOrdered By: Frances Mccauley on 09-30-2024 Protein [Mass/Vol] 7.5 g/dL 5.9-8.4 [facility] Triglycerides measurementOrd ered By: Don Mccauley on 09-30-2024 Triglyceride [Mass/Vol] 259 mg/dL High <[address] [facility] Comment on above: The drugs N-Acetylcy steine and Metamizole may falsely depress this assay. Normal range: <150 mg/dLBorderline High: 150-199 mg/dLHigh: 200-499 mg/dLVery High: >500 mg/dL Comprehensive Metabolic Prof ilon 05-16-2024 Albumin [Mass/Vol] 3.6 g/dL Normal 3.2-5.0 [facility] Comment on above: Performed By: #### L [id number], [id number] #### [facility] [address], [address] Albumin/Globulin [Mass ratio] 1.1 {ratio} Normal 0.9-2.4 [facility] Comment on above: Performed By: #### L 500.4100, [id number] #### [facility] [address] [place], [address] ALK P 49 U/L Normal 45-117 [facility] Comment on above: Performed By: #### L 500.4100, [id number] #### [facility] [address] [place], [address] ALT [Catalytic activity/Vol] 33 U/L Normal 16-61 [facility] Comment on above: Performed By: #### L 500.4100, [id number] #### [facility] [address] [place], [address] AST [Catalytic activity/Vol] 20 U/L Normal 15-37 [facility] Comment on above: Performed By: #### L 500.4100, [id number] #### [facility] [address] [place], [address] Bilirubin [Mass/Vol] 0.70 mg/dL Normal 0.20-1.00 [facility] Comment on above: Result Comment: For patients on eltrombopag therapy, use of Dimension [place] TBIL is not recommended. Performed By: #### L 500.4100, [id number] #### [facility] [address] [place], [address] BUN/CRE 14.7 RATIO Normal 10-20 [facility] Comment on above: Performed By: #### L 500.4100, [id number] #### [facility] [address] [place], [address] CA,Total 9.2 mg/dL Normal 8.5-10.1 [facility] Comment on above: Performed By: #### L 500.4100, [id number] #### [facility] [address] [place], [address] Chloride [Moles/Vol] 107 mmol/L Normal 98-107 [facility] Comment on above: Performed By: #### L 500.4100, [id number] #### [facility] [address] [place], [address] CO2 [Moles/Vol] 26.0 mmol/L Normal 21.0-32.0 [facility] Comment on above: Performed By: #### L 500.4100, [id number] #### [facility] [address] [place], [address] Creatinine [Mass/Vol] 1.09 mg/dL Normal 0.70-1.30 [facility] Comment on above: Result Comment: The validity of the calculated GFR GFRAA in patients over 70 years has not been determined. Clinical correlation is essential. Performed By: #### L 500.4100, [id number] #### [facility] [address] [place], [address] EST GFR - AA 90 mL/min Normal >60 [facility] Comment on above: Result Comment: Afri can Belgian GFR Calc Performed By: #### L 500.4100, [id number] #### [facility] [address] [place], [address] GAP 6 Normal 5-15 [facility] Comment on above: Performed By: #### L 500.4100, [id number] #### [facility] [address] [place], [address] GFR/1.73 sq M.predicted among non-blacks MDRD (S/P/Bld) [Vol rate/Area] 74 mL/min/{1.73_m2} Normal >60 [facility] Comment on above: Result Comment: Non- GFR Calc Performed By: #### L 500.4100, [id number] #### [facility] [address] [place], [address] Globulin (S) [Mass/Vol] 3.4 g/dL Normal 2.2-4.2 [facility] Comment on above: Performed By: #### L 500.4100, [id number] #### [facility] [address] [place], [address] Glucose [Mass/Vol] 108 mg/dL High 74-106 [facility] Comment on above: Result Comment: Fast ing Glucose result from 100 to 125 mg/dL suggests IMPAIRED HOMEOSTASIS per A.D.A. criteria. Performed By: #### L 500.4100, [id number] #### [facility] [address] [place], [address] Potassium [Moles/Vol] 3.9 mmol/L Normal 3.5-5.1 [facility] Comment on above: Performed By: #### L 500.4100, [id number] #### [facility] [address] [place], [address] Sodium [Moles/Vol] 139 mmol/L Normal 136-145 [facility] Comment on above: Performed By: #### L 500.4100, [id number] #### [facility] [address] [place], [address] T PROT 7.0 g/dL Normal 6.4-8.2 [facility] Comment on above: Performed By: #### L 500.4100, [id number] #### [facility] [address] [place], [address] Urea nitrogen [Mass/Vol] 16 mg/dL Normal 7-18 [facility] Comment on above: Performed By: #### L 500.4100, [id number] #### [facility] [address] [place], [address] Lipid Profileon 05-16-2024 Cholesterol [Mass/Vol] 188 mg/dL Normal 200 [facility] Comment on above: Result Comment: <200 mg/dL Desirable 200-240 mg/dL Borderline >240 mg/dL High Risk Performed By: #### L 500.4100, [id number] #### [facility] [address] [place], [address] Cholesterol in HDL [Mass/Vol] 33 mg/dL Low [facility] Comment on above: Result Comment: The drugs N-Acetylcysteine and Metamizole may falsely depress this assay. Reference Range HDL <40 mg/dL Low HDL Cholesterol HDL >or= 60 mg/dL High HDL Cholesterol Performed By: #### L 500.4100, [id number] #### [facility] [address] [place], [address] Cholesterol in LDL [Mass/Vol] 119 mg/dL Normal 0-130 [facility] Comment on above: Performed By: #### L 500.4100, [id number] #### [facility] [address] [place], [address] Cholesterol in VLDL [Mass/Vol] 36 mg/dL Normal 5-40 [facility] Comment on above: Performed By: #### L 500.4100, [id number] #### [facility] [address] [place], [address] Triglyceride [Mass/Vol] 179 mg/dL Normal [facility] Comment on above: Result Comment: The drugs N-Acetylcysteine and Metamizole may falsely depress this assay. Serum Triglycerides Reference Interval Normal <150 mg/dL Borderline high 150 - 199 mg/dL High 200 - 499 mg/dL Very High > or = 500 mg/dL Performed By: #### L 500.4100, L500.4050 #### [facility] [address] [place], [address] Basophil percentageon 2021 Bilirubin [Mass/Vol] 0.30 mg/dL 0.20-1.00 [facility] Work Phone: Comment on above: For patients on eltr ombopag therapy, use of Dimension [place] TBIL is not recommended. Cholesterol [Mass/Vol] 188 mg/dL <200 [facility] Work Phone: Comment on above: <200 mg/dL Desirable 200-240 mg/dL Borderline >240 mg/dL High Risk Protein [Mass/Vol] 7.3 g/dL 6.4-8.2 [facility] Work Phone: Triglyceride [Mass/Vol] 286 mg/dL <[address] [facility] Work Phone: Comment on above: The drugs N-Acetylcy steine and Metamizole may falsely depress this assay.Serum Triglycerides Reference Interval Normal <150 mg/dL Borderline high 150 - 199 mg/dL High 200 - 499 mg/dL Very High > or = 500 mg/dL Direct bilirubinon 2 Bilirubin.direct [Mass/Vol] 0.08 mg/dL 0.00-0.30 [facility] Work Phone: Laboratory - Chemistry and C hemistry - challengeon 03-10-2022 ALP [Catalytic activity/Vol] 57 U/L 45-117 [facility] Work Phone: ALT [Catalytic activity/Vol] 54 U/L 16-61 [facility] Work Phone: Globulin (S) [Mass/Vol] 3.6 g/dL 2.2-4.[address] [facility] Work Phone: Serum or plasma albumin sergei urement (mass/volume)on 03-10-2022 Albumin [Mass/Vol] 3.7 g/dL 3.2-5.0 [facility] Work Phone: Serum or plasma cholesterol in HDL measurement (mass/volume)on 03-10-2022 Cholesterol in HDL [Mass/Vol] 25 mg/dL >40 [facility] Work Phone: Comment on above: The drugs N-Acetylcy steine and Metamizole may falsely depress this assay. Reference Range HDL <40 mg/dL Low HDL Cholesterol HDL >or= 60 mg/dL High HDL Cholesterol Serum or plasma cholesterol in VLDL measurement (mass/volume)on 03-10-2022 Cholesterol in VLDL [Mass/Vol] 57 mg/dL 5-40 [facility] Work Phone: Serum or plasma low density lipoprotein (LDL) cholesterol measurement (mass/volume)on 03-10-2022 Cholesterol in LDL [Mass/Vol] 106 mg/dL 0-130 [facility] Work Phone: Thin prep Papanicolaou smear with manual screeningon 03-10-2022 Thin prep Papanicolaou smear with manual screening 23 U/L 15-37 [facility] Work Phone: Basophil percentageon 2021 Bilirubin [Mass/Vol] 0.30 mg/dL 0.20-1.00 [facility] Work Phone: Comment on above: For patients on eltr ombopag therapy, use of Dimension [place] TBIL is not recommended. Cholesterol [Mass/Vol] 234 mg/dL <200 [facility] Work Phone: Comment on above: <200 mg/dL Desirable 200-240 mg/dL Borderline >240 mg/dL High Risk Protein [Mass/Vol] 7.5 g/dL 6.4-8.2 [facility] Work Phone: Triglyceride [Mass/Vol] 283 mg/dL [facility] Work Phone: Comment on above: The drugs N-Acetylcy steine and Metamizole may falsely depress this assay.Serum Triglycerides Reference Interval Normal <150 mg/dL Borderline high 150 - 199 mg/dL High 200 - 499 mg/dL Very High > or = 500 mg/dL Direct bilirubinon 2 Bilirubin.direct [Mass/Vol] 0.09 mg/dL 0.00-0.30 [facility] Work Phone: Laboratory - Chemistry and C hemistry - challengeon 05-31-2022 ALP [Catalytic activity/Vol] 51 U/L 45-117 [facility] Work Phone: ALT [Catalytic activity/Vol] 42 U/L 16-61 [facility] Work Phone: Globulin (S) [Mass/Vol] 3.5 g/dL 2.2-4.[address] [facility] Work Phone: Serum or plasma albumin sergei urement (mass/volume)on 08-29-2021 Albumin [Mass/Vol] 4.0 g/dL 3.2-5.0 [facility] Work Phone: Serum or plasma cholesterol in HDL measurement (mass/volume)on 08-29-2021 Cholesterol in HDL [Mass/Vol] 30 mg/dL [facility] Work Phone: Comment on above: The drugs N-Acetylcy steine and Metamizole may falsely depress this assay. Reference Range HDL <40 mg/dL Low HDL Cholesterol HDL >or= 60 mg/dL High HDL Cholesterol Serum or plasma cholesterol in VLDL measurement (mass/volume)on 08-29-2021 Cholesterol in VLDL [Mass/Vol] 57 mg/dL 5-40 [facility] Work Phone: Serum or plasma low density lipoprotein (LDL) cholesterol measurement (mass/volume)on 08-29-2021 Cholesterol in LDL [Mass/Vol] 147 mg/dL 0-130 [facility] Work Phone: Thin prep Papanicolaou smear with manual screeningon 08-29-2021 Thin prep Papanicolaou smear with manual screening 21 U/L 15-37 [facility] Work Phone: Vital Signs Date Time Vital Sign Value Performing Clinician Faci lity 03-05-2022 15:17-0500 Body height 182.[address] Don Mccauley Work Phone: [facility] Work Phone: 03-05-2022 15:17-0500 Body mass index (BMI) [Ratio] 33.9 kg/m2 Dr. Don Mccauley Work Phone: [facility] Work Phone: 03-05-2022 15:17-0500 Body weight 113.[address] Don Mccauley Work Phone: [facility] Work Phone: 03-05-2022 15:17-0500 Diastolic blood pressure 93 mm[Hg] Dr. Don Mccauley Work Phone: [facility] Work Phone: 03-05-2022 15:17-0500 Heart rate 82 /min Dr. Don Mccauley Work Phone: [facility] Work Phone: 03-05-2022 15:17-0500 Respiratory rate 18 /min Dr. Don Mccauley Work Phone: [facility] Work Phone: 03-05-2022 15:17-0500 SaO2% (BldA) [Mass fraction] 97 % Dr. Don Mccauley Work Phone: [facility] Work Phone: 03-05-2022 15:17-0500 Systolic blood pressure 138 mm[Hg] Dr. Don Mccauley Work Phone: [facility] Work Phone: 08-29-2021 16:00-0400 Body height 182.[address] Dno Mccauley Work Phone: [facility] Work Phone: 08-29-2021 16:00-0400 Body mass index (BMI) [Ratio] 32.6 kg/m2 Dr. Don Mccauley Work Phone: [facility] Work Phone: 08-29-2021 16:00-0400 Body weight 109.[address] Don Mccauley Work Phone: [facility] Work Phone: 08-29-2021 16:00-0400 Diastolic blood pressure 73 mm[Hg] Dr. Don Mccauley Work Phone: [facility] Work Phone: 08-29-2021 16:00-0400 Heart rate 86 /min Dr. Don Mccauley Work Phone: [facility] Work Phone: 08-29-2021 16:00-0400 Respiratory rate 16 /min Dr. Don Mccauley Work Phone: [facility] Work Phone: 08-29-2021 16:00-0400 Systolic blood pressure 111 mm[Hg] Dr. Don Mccauley Work Phone: [facility] Work Phone: Encounters Encounter Date Encounter Type Care Provider Facility Start: 09-30-2024 End: 09-30-[address] Don Mccauley MD Work Phone: -Laboratory Start: 09-30-2024 End: 09-30-[address] Don Mccauley MD -Laboratory Work Phone: Start: 09-30-2024 End: 09-30-2024 ambulatory Don Mccauley Facility:[facility] Start: 05-16-2024 End: 05-16-2024 ambulatory Don Mccauley Facility:[facility] Start: 03-10-2022 End: 03-10-[address] Don Mccauley Work Phone: [facility] Work Phone: Start: 03-10-2022 End: 03-10-[address] Don Mccauley Work Phone: [facility] Start: 03-05-2022 End: 03-05-[address] Don Mccauley Work Phone: [facility] Start: 08-29-2021 End: 08-29-[address] Don Mccauley Work Phone: [facility] Start: 08-29-2021 End: 08-29-[address] Don Mccauley Work Phone: [facility] Payers Date Payer Category Payer Self-pay [id number] 2024 Unknown [id number] Unknown [id number] Unknown [id number] Unknown [id number] Social History Date Type Detail Facility Start: 08-29-2021 End: 03-05-2022 Tobacco smoking status NHIS Unknown if ever smoked [facility] Work Phone: Start: 1965 Sex Assigned At Male [facility] Start: 05-29-2022 [facility] Evaluation note Note Date & Type Note Facility Evaluation note Diagnosis Onset Date Essential (primary) hypertension chronic Hyperlipidemia chronic [facility] Work Phone: Evaluation note Note Date & Type Note Facility Evaluation note No assessment information availa ble [facility] Work Phone: Reason for referral (narrative) Note Date & Type Note Facility Reason for referral (narrative) No reason for referral information available [facility] Work Phone: Chief Complaint and Reason for Visit Chief Complaint 1 Y FU Reason for Visit Essential (primary) hypertension Hyperlipidemia Chief Complaint 6 M FU INT LABS Reason for Visit Essential (primary) hypertension Hyperlipidemia Family History No Family History Records Found Relationship Condition Age at Onset Recorded Date/T brock father Coronary artery disease Unknown Diabetes mellitus Unknown Myocardial infarction 74 mother Hypertension Unknown Cerebrovascular accident (CVA) Unknown Summary Purpose Advance Directives No Advanced Directives Records Found Additional Source Comments Goals (unrecognized section and content) Goals may be documented in a n alternate sectionGoals may be documented in an alternate sectionGoals may be documented in an alternate section Care Teams (unrecognized sec tion and content) Team Status: Active Member Role/Relationship Status Dates Dr. Trina Whitlock MD Family Provider Active Dr. Don Mccauley MD Primary Care Provider Active Team Status: Inactive Member Role/Relationship Status Dates Dr. Don Mccauley MD Primary Care Provider Active Start: September 30, 2024 End: September 30, 2024 Dr. Don Mccauley MD Attending Provider Active Start: September 30, 2024 End: September 30, 2024 Dr. Don Mccauley MD Referring Provider Active Start: September 30, 2024 End: September 30, 2024 (unrecognized sect ion and content) No Status Records Found INFORMATION SOURCE (unrecogn ized section and content) DATE CREATED AUTHOR 10/09/2024 [facility] FOR RECORDS PERTAINING TO PATIENTS WHO ARE OR HAVE BEEN ENROLLED IN A CHEMICAL DEPENDENCY/SUBSTANCEABUSE PROGRAM, SOME INFORMATION MAY BE OMITTED. This clinical summary was aggregated from multiple sources. Caution should be exercised in using it in the provision of clinical care. This summary normalizes information from multiple sources, and as a consequence, information in this document may materially change the coding, format and clinical context of patient data. In addition, data may be omitted in some cases. CLINICAL DECISIONS SHOULD BE BASED ON THE PRIMARY CLINICAL RECORDS. [employer] provides no warranty or guarantee of the accuracy or completeness of information in this document.
[2025-02-24 07:41] LABS: AST(SGOT) 25 U/L (<=37); Alanine Aminotransfer ALT/SGPT 33 U/L (<=46); Albumin, Serum 4.1 g/dL (3.5-5.0); Alkaline Phosphatase 50 U/L (40-129); Anion Gap 10 (5-15); BUN 17 mg/dL (4-19); BUN/Creat Ratio 15.4 RATIO (10-20); Calcium,Total 9.1 mg/dL (7.6-11.0); Carbon Dioxide 25.3 mmol/L (21.0-32.0); Chloride 104 mmol/L (98-108); Globulin 2.8 g/dL (2.2-4.2); Glucose 109 mg/dL (70-99); Potassium 4.0 mmol/L (3.3-5.1)
[2025-02-24 07:54] LABS: Cholesterol 188 mg/dL (<=200); Low Density Lipoprotein Calc. 119 mg/dL; Triglycerides 213 mg/dL; Very Low Density Lipoprotein 43 mg/dL (5-40); cholesterol:hdl ratio screen 5.91
== END | disposition home or self-care (01) ==
LOC: LAB 06:48
PROVIDERS: PCP Family Medicine; Referring Provider Family Medicine; Visit Provider Family Medicine
DX: E78.5 Hyperlipidemia, unspecified (principal)
CPT/HCPCS: 36415; 80053; 80061